=== PATIENT | male | born 1965 | race Two or more races ===

== ENCOUNTER 2017-11-02 18:17 | Emergency (ER) | payer BC ==
[2017-11-02 18:25] VITALS: BP 121/75; PULSE 101; TEMP 98.1; BMI 22.6
--- NOTE | 2017-11-02 19:40 | PDOC ---
History of Present Illness - General Chief Complaint: Back Pain Stated Complaint: BACK PAIN Time Seen by Provider: 11/02/17 19:29 - History of Present Illness Initial Comments: 11/02/17 19:34 CHIEF COMPLAINT: Lower back pain HISTORY OF PRESENT ILLNESS:52-year-old male presents emergency Department with acute on chronic lower back pain. 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 Patient states that while moving a couch up stairs, he felt a twinge in his lower back. Pain is 8/10 describes as shooting/stabbing is nonradiating. Patient denies numbness or tingling to rectum or genitals. Denies urinary or fecal incontinence. REVIEW OF SYSTEMS: GENERAL: Afebrile, denies any weakness RESPIRATORY: No cough, wheezing, or hemoptysis. CARDIAC: No chest pain or shortness of breath MUSCULOSKELETAL: Pain to generalized lower back. No point tenderness. SKIN : No erythema, no bruising, no deformity. GI/: Denies any abdominal pain, no urinary difficulty, incontinence or urinary retention. RECTAL: Denies any difficulty this A.m. NEUROLOGICAL: Denies any numbness or tingling. No neurosensory deficits. PHYSICAL EXAM: GENERAL: The patient is awake, alert, and fully oriented, in no acute distress. RESPIRATORY: Lungs clear bilaterally, no rhonchi wheezes or crackles CARDIAC: S1-S2 audible, no murmur rub or gallop MUSCULOSKELETAL: Pain to generalized lower back, nonradiating, no tingling or sensory deficit. Less than 2 second cap refill, +42 popliteal and pedal pulses. GI/: Abdomen soft, nontender, nondistended. No rebound tenderness. No masses palpable. MUSCULOSKELETAL: No spinal point tenderness. Normal reflexive and no deficits to sensation or strength. RECTAL: Deferred patient with no neurological findings SKIN: Warm, Dry, normal turgor, no erythema, no edema no bruising. 11/02/17 19:36 Past History - Past Medical History Allergies/Adverse Reactions: Allergies Allergy/AdvReac Type Severity Reaction Status Date / Time No Known Allergies Allergy Verified 11/02/17 18:21 Home Medications: Ambulatory Orders NK [No Known Home Medication] 11/02/17 COPD: No Other medical history: DENIES. - Suicide/Smoking/Psychosocial Hx Smoking History: Current every day smoker Have you smoked in the past 12 months: Yes Number of Cigarettes Smoked Daily: 10 Information on smoking cessation initiated: No *Physical Exam - Vital Signs Last Vital Signs Temp Pulse Resp BP Pulse Ox 98.1 F 101 H 19 121/75 99 11/02/17 18:22 11/02/17 18:22 11/02/17 18:22 11/02/17 18:22 11/02/17 18:22 Medical Decision Making - Medical Decision Making 11/02/17 19:39 52-year-old male with acute on chronic lower back pain. Sensation to medial and lateral thighs. Able to perform straight leg raises without difficulty. No palpable muscle spasms in lower back. Motrin 800 mg orally now. Discharge patient home with instructions to take Aleve as needed for pain. *DC/Admit/Observation/Transfer Diagnosis at time of Disposition: Back pain Qualifiers: Back pain location: low back pain Chronicity: acute Back pain laterality: bilateral Sciatica presence: without sciatica Qualified Code(s): M54.5 - Low back pain - Discharge Dispostion Disposition: HOME Condition at time of disposition: Stable Admit: No - Referrals - Patient Instructions Printed Discharge Instructions: DI for Low Back Pain Additional Instructions: Warm moist heat may alleviate some of your pain. Take Aleve as directed by manufacturers instructions for back pain. Return to emergency department for loss of control of your bladder or bowels, numbness or tingling to rectum, genitals, legs or any other concerns. Thank you very much for choosing us to provide your emergent healthcare needs. - Post Discharge Activity
[2017-11-02] MEDS ORDERED: IBUPROFEN 400 MG TABLET (FP) PO ONE ×2 (19:42→19:46)
== END 2017-11-02 19:55 | disposition home or self-care (01) ==
LOC: JERFT 18:17
DX: M54.5 Low back pain (principal); X50.0XXA Overexertion from strenuous movement or load, initial encounter; Y93.F2 Activity, caregiving, lifting; Y92.118 Other place in children's home and orphanage as the place of occurrence of the external cause; Y99.0 Civilian activity done for income or pay; F17.210 Nicotine dependence, cigarettes, uncomplicated
CPT/HCPCS: 99281-25

== ENCOUNTER 2019-04-05 18:04 | Emergency (ER) | payer OTHER ==
--- NOTE | 2019-04-05 18:21 | PDOC ---
Rapid Medical Evaluation Time Seen by Provider: 04/05/19 18:19 Medical Evaluation: Allergies Allergy/AdvReac Type Severity Reaction Status Date / Time No Known Allergies Allergy Verified 05/14/18 21:17 04/05/19 18:19 I have performed a brief in-person evaluation of this patient. The patient presents with a chief complaint of: left shoulder pain Pertinent physical exam findings: No tenderness. Left shoulder pain worsens with PROM. I have ordered the following: cardiac w/u The patient will proceed to the ED for further evaluation. Discharge Disposition - Diagnosis Left shoulder pain - Referrals - Patient Instructions - Post Discharge Activity
[2019-04-05 18:23] VITALS: TEMP 97.4; BMI 22.6
--- NOTE | 2019-04-05 18:58 | PDOC ---
History of Present Illness - General Chief Complaint: Chest Pain Stated Complaint: CHEST PAIN AND SHOULDER Time Seen by Provider: 04/05/19 18:19 - History of Present Illness Initial Comments: Mr. Han is a 54M presenting today with left sided scapular pain that radiates down his left arm and left side of his neck. Reports that the pain started on . Reports that the pain has been worsening. No fever, no cough, no nausea/vomiting. Reports feeling short of breath at rest but does not worsen on exertion. No trauma, no falls. No rash. Reports similar but less severe pains around 1 year ago. Unsure about the type of work up done. He has been taking 15-20 tabs of Tylenol every day with no relief. No HTN, HLD, DM. Smoked 1 pack per day for 39 years. No family history of cardiac disease. Denies any other PMH or medications. Past History - Past Medical History Allergies/Adverse Reactions: Allergies Allergy/AdvReac Type Severity Reaction Status Date / Time No Known Allergies Allergy Verified 04/05/19 18:20 Home Medications: Ambulatory Orders Azithromycin [Zithromax 250mg Tablets -] 250 mg PO UTDICT #6 tab 05/14/18 Benzonatate [Tessalon Pearls -] 100 mg PO TID PRN #21 capsule 05/14/18 Ipratropium [place] 2 sprays NS BID PRN 5 Days #1 spray 05/14/18 Methylprednisolone [Medrol Dose Jarrod] 4 mg PO ASDIR #21 tablet 05/14/18 COPD: No - Immunization History Immunization Up to Date: Yes - Suicide/Smoking/Psychosocial Hx Smoking History: Current every day smoker Have you smoked in the past 12 months: Yes Number of Cigarettes Smoked Daily: 10 Information on smoking cessation initiated: No Hx Alcohol Use: No Drug/Substance Use Hx: No Review of Systems - Review of Systems Comments:: ROS GENERAL/CONSTITUTIONAL: No fever or chills. No weakness._ HEAD, EYES, EARS, NOSE AND THROAT: No change in vision. No ear pain or discharge. No sore throat._ CARDIOVASCULAR: Reports chest pain and shortness of breath. RESPIRATORY: Denies cough, hemoptysis_ GASTROINTESTINAL: No nausea, vomiting, diarrhea or constipation._ GENITOURINARY: No dysuria, frequency, or change in urination._ MUSCULOSKELETAL: Reports pain down the left arm and left side of the neck and left scapula. SKIN: No rash_ NEUROLOGIC: No headache, vertigo, loss of consciousness, or change in strength/ sensation._ ENDOCRINE: No increased thirst. No abnormal weight change_ HEMATOLOGIC/LYMPHATIC: No anemia, easy bleeding, or history of blood clots._ ALLERGIC/IMMUNOLOGIC: No hives or skin allergy._ *Physical Exam - Vital Signs Last Vital Signs Temp Pulse Resp BP Pulse Ox 97.4 F L 82 18 137/90 99 04/05/19 18:20 04/05/19 18:20 04/05/19 18:20 04/05/19 18:20 04/05/19 18:20 - Physical Exam Comments: GENERAL: Awake, alert, and oriented to person/place/time, in no acute distress_ HEAD: No signs of trauma, normocephalic, atraumatic _ EYES: PERRLA, EOMI, sclera anicteric, conjunctiva clear_ ENT: Hearing grossly normal, nares patent, oropharynx clear without exudates. No uvular deviation. Moist mucosa_ NECK: Normal ROM, supple, no lymphadenopathy, JVD, or masses. Muscle tightness over the left lateral neck. CHEST: TTP over left and right sided chest wall, left greater than right. LUNGS: No distress, speaks in full sentences, clear to auscultation bilaterally _ HEART: Regular rate and rhythm, normal S1 and S2, no murmurs appreciated, peripheral pulses normal and equal bilaterally._ ABDOMEN: Soft, nontender, normoactive bowel sounds. No guarding, no rebound. No masses_ EXTREMITIES: Tenderness over the left scapula and down the LUE. NEUROLOGICAL: Cranial nerves II through XII grossly intact. Normal speech, normal gait, no focal sensorimotor deficits _ SKIN: Warm, Dry, normal turgor, no rashes or lesions noted_ ED Treatment Course - LABORATORY CBC & Chemistry Diagram: 04/05/19 19:15 04/05/19 19:15 Medical Decision Making - Medical Decision Making 04/05/19 1900 54M, 39 pack year smoker, denies any other PMH, meds, or risk factors, presenting with left sided scapular pain that radiates down the left arm and up the left neck. DDx includes ACS vs chest wall tenderness vs costochondritis. We'll obtain CBC, CMP, CXR, EKG, troponins, PT/PTT/INR, Mg. 04/05/19 19:52 HEART score 2. Plan for repeat troponins. EKG shows NSR 81 bpm, no axis deviation, no ST elevation or depression, QTc 443 ms. 04/05/19 22:14 Electrolytes wnl. Troponin wnl. Second troponin ordered. CTA of the chest and abdomen ordered to r/o dissection. 04/05/19 22:30 Pt signed out to Dr. Encarnacion. *DC/Admit/Observation/Transfer Diagnosis at time of Disposition: Left shoulder pain Qualifiers: Chronicity: acute Qualified Code(s): M25.512 - Pain in left shoulder - Referrals Referrals: Michelle Cox MD [Primary Care Provider] - - Patient Instructions - Post Discharge Activity
[2019-04-05 20:05] LABS: BASO % 2.2 % (0-2.0); EOS % 1.2 % (0-4.5); HEMATOCRIT 41.3 % (35.4-49); HEMOGLOBIN 14.3 GM/dL (11.7-16.9); LYMPH % 28.3 % (8-40); MCH 30.4 pg (25.7-33.7); MCHC 34.6 g/dl (32.0-35.9); MEAN CELL VOLUME 87.9 fl (80-96); MONO % 7.7 % (3.8-10.2); NEUT % 60.6 % (42.8-82.8); PLATELET COUNT 135 K/MM3 (134-434); RDW 12.8 % (11.9-15.9); WHITE BLOOD COUNT 5.8 K/mm3 (4.0-10.0)
[2019-04-05 20:25] LABS: INR 0.93 (0.83-1.09)
[2019-04-05 20:38] LABS: ALBUMIN 4.7 g/dl (3.4-5.0); BILIRUBIN,TOTAL 0.5 mg/dL (0.2-1); BLOOD UREA NITROGEN 11.9 mg/dL (7-18); CALCIUM 9.1 mg/dL (8.5-10.1); MAGNESIUM 2.6 mg/dL (1.8-2.4); POTASSIUM 4.4 mmol/L (3.5-5.1); TOT PROT 7.5 g/dl (6.4-8.2)
--- NOTE | 2019-04-05 22:30 | PDOC ---
*Physical Exam - Vital Signs Last Vital Signs Temp Pulse Resp BP Pulse Ox 97.4 F L 68 16 148/93 100 04/05/19 18:20 04/05/19 20:03 04/05/19 20:03 04/05/19 20:03 04/05/19 20:03 - Physical Exam Comments: 04/06/19 00:21 Gen: Alert, NAD, comfortable-appearing. HEENT: PERRL, EOMI, MMM, NCAT. No conjunctival pallor. Sclera are non-icteric. Oropharynx is clear. CV: Regular rate and rhythm. No murmurs, rubs, or gallops. PULM: No resp distress. CTAB, no wheezes, rales, or rhonchi. ABD: soft, NT/ND, no rebound tenderness or guarding, no CVA tenderness. BACK: No TTP of c/t/l-spine. No step-offs or deformities. MSK: + TTP of L deltoid and trapezius, full ROM of shoulder. No bony deformities. 2+ pulses in all extremities. NEURO: AAOx3. PERRL. No gross CN deficits. Strength and sensation grossly intact throughout. EXTREMITIES: No cyanosis. No clubbing. No edema. No calf tenderness. PSYCH: Normal mood and thought pattern. SKIN: Warm and dry. Normal capillary refill. No rashes. No jaundice. ED Treatment Course - LABORATORY CBC & Chemistry Diagram: 04/05/19 19:15 04/05/19 19:15 - ADDITIONAL ORDERS Additional order review: Laboratory Results 04/05/19 04/05/19 04/05/19 19:15 19:15 19:15 PT with INR 11.00 INR 0.93 Sodium 139 Potassium 4.4 Chloride 105 Carbon Dioxide 29 Anion Gap 5 L BUN 11.9 Creatinine 1.0 Est GFR (CKD-EPI)AfAm 99.15 Est GFR (CKD-EPI)NonAf 85.55 Random Glucose 93 Calcium 9.1 Magnesium 2.6 H Total Bilirubin 0.5 AST 20 ALT 39 Alkaline Phosphatase 64 Creatine Kinase 191 Creatine Kinase Index 0.5 CK-MB (CK-2) < 1.0 Troponin I < 0.02 Total Protein 7.5 Albumin 4.7 04/05/19 19:15 RBC 4.70 MCV 87.9 MCHC 34.6 RDW 12.8 MPV 10.0 Neutrophils % 60.6 Lymphocytes % 28.3 Monocytes % 7.7 Eosinophils % 1.2 Basophils % 2.2 H Medical Decision Making - Medical Decision Making 04/05/19 22:29 Received sign out from Dr. Cordero. 54M, 39 pack year smoker, denies any other PMH, meds, or risk factors, presenting with left sided scapular pain that radiates down the left arm and up the left neck. DDx includes ACS vs chest wall tenderness vs costochondritis. HEART 2 - WNL: CBC, CMP, CXR, EKG, troponins, PT/PTT/INR, Mg. - Neg CXR - pending 2nd trop and CTA to r/o dissection. If negative, most likely MSK - d/ c home w/f/u ortho Seen and assessed pt at bedside. Pain is reproducible in shoulder, most likely musculoskeletal. CTA negative for dissection. Give Toradol for pain. Pending 2nd trop 04/06/19 00:41 2nd trop <0.02 Pain still minimally present but improved. Will d/c home with ortho f/u. Return precautions given. Pt understands all dc instructions and all questions were answered. *DC/Admit/Observation/Transfer Diagnosis at time of Disposition: Left shoulder pain Qualifiers: Chronicity: acute Qualified Code(s): M25.512 - Pain in left shoulder - Discharge Dispostion Disposition: HOME Condition at time of disposition: Improved Decision to Admit order: No - Referrals Referrals: Michelle Cox MD [Primary Care Provider] - Erasmo Montenegro MD [Staff Physician] - - Patient Instructions Printed Discharge Instructions: DI for Shoulder Pain Additional Instructions: You have been seen in the Emergency Department for your left shoulder pain. Your EKG, chest X-ray, CT scan, and labs, including Troponin (a heart enzyme), show no signs concerning for an emergent condition such as a heart attack or dissection. There are many possible causes of your pain, but based on exam and results, it is most likely musculoskeletal such as a muscle strain. If you experience pain, you can take Tylenol or Ibuprofen as directed on the medication bottle, but do not exceed 3g of Ibuprofen or 4g of Tylenol a day. We have given you a referral to an Orthopedic Surgeon, Dr. Montenegro. Call his office in the morning to set up an appointment for this week. Also follow-up with your primary care doctor within 1 week. Return to the ED immediately if you experience worsening pain not controlled with over the counter medications, chest pain, difficulty breathing, dizziness, or any other new or worsening symptom. - Post Discharge Activity
[2019-04-05] MEDS ORDERED: KETOROLAC TROMETHAMINE 30 MG/1 ML VIAL IVPUSH ONE (23:32)
[2019-04-05] MEDS ORDERED: KETOROLAC TROMETHAMINE 30 MG/1 ML VIAL ONE ×2 (23:51→23:53)
[2019-04-06 01:23] VITALS: BP 129/77; PULSE 100
--- NOTE | 2019-04-06 01:28 | PDOC ---
Documentation entered by Margie Mauricio SCRIBE, acting as scribe for Thi Sherman DO. Thi Sherman DO: This documentation has been prepared by the Luly epps Adrianna, SCRIBE, under my direction and personally reviewed by me in its entirety. I confirm that the documentation accurately reflects all work, treatment, procedures, and medical decision making performed by me. Attending Attestation - Resident Resident Name: GilMoise - ED Attending Attestation I have performed the following: I have examined & evaluated the patient, The case was reviewed & discussed with the resident, I agree w/resident's findings & plan - HPI HPI: The patient is a 54 year old male (current everyday smoker), with no significant PMH, who presents to the ED for evaluation of chest pain for 4 days. He notes the pain is progressively worsening, constant, left sided, most prominent over the scapula, and radiates to his neck and down his LUE. Patient reports associated SOB. Denies numbness or tingling of the LUE. Denies nausea, vomit, rash. Allergies: NKA, NKDA Surgical History: Social History: Current smoker (1ppd) PCP: Dr. Cox - Physicial Exam PE: GENERAL: Awake, in no acute distress HEAD: No signs of trauma EYES: ENT:clear without exudates. Moist mucosa NECK: Normal ROM, LUNGS:. Normal work of breathing. HEART: Regular rate and rhythm, ABDOMEN: Soft, nondistended CHEST WALL: BACK: No midline tenderness. EXTREMITIES:. No erythema, or tenderness NEUROLOGICAL: Alert, SKIN: Warm, Dry - Medical Decision Making 04/06/19 01:07 54-year-old male with left scapular pain, shoulder pain intermittently EKG shows a normal sinus rythm at 81 bpm with no acute ST elevations Rhythmows a sinus rhythm at 80-85 bpm CTA of the chest show no acute abnormalities Troponins negative 2 Patient improved after the Toradol injection in the emergency department Plan for discharge with outpatient primary care follow-up ED Treatment Course - LABORATORY CBC & Chemistry Diagram: 04/05/19 19:15 04/05/19 19:15 - ADDITIONAL ORDERS Additional order review: Laboratory Results 04/05/19 04/05/19 04/05/19 19:15 19:15 19:15 PT with INR 11.00 INR 0.93 Sodium 139 Potassium 4.4 Chloride 105 Carbon Dioxide 29 Anion Gap 5 L BUN 11.9 Creatinine 1.0 Est GFR (CKD-EPI)AfAm 99.15 Est GFR (CKD-EPI)NonAf 85.55 Random Glucose 93 Calcium 9.1 Magnesium 2.6 H Total Bilirubin 0.5 AST 20 ALT 39 Alkaline Phosphatase 64 Creatine Kinase 191 Creatine Kinase Index 0.5 CK-MB (CK-2) < 1.0 Troponin I < 0.02 Total Protein 7.5 Albumin 4.7 04/05/19 19:15 RBC 4.70 MCV 87.9 MCHC 34.6 RDW 12.8 MPV 10.0 Neutrophils % 60.6 Lymphocytes % 28.3 Monocytes % 7.7 Eosinophils % 1.2 Basophils % 2.2 H - RADIOLOGY Radiograph Interpretation: EXAM#: TYPE/EXAM: RESULT: [id number] CT/CHEST CTA CT/ABDOMEN CTA W/WO CONTRAST Chest CT angiography (without and with contrast) Abdomen CT angiography (without and with contrast) Clinical information: evaluate for dissection; chest pain Impression: No CT evidence of aortic dissection or other acute pathology as noted above. Reported By: Dennis Avery MD 04/05/19 22:38 EXAM#: TYPE/EXAM: RESULT: [id number] CT/CHEST CTA [id number] CT/ABDOMEN CTA W/WO CONTRAST Chest CT angiography (without and with contrast) Abdomen CT angiography (without and with contrast) Clinical information: evaluate for dissection; chest pain Impression: No CT evidence of aortic dissection or other acute pathology as noted above. Reported By: Dennis Avery MD 04/05/19 22:38 - Medications Given in the ED: ED Medications Discontinued Medications Generic Name Dose Route Start Last Admin Trade Name Freq PRN Reason Stop Dose Admin Ketorolac Tromethamine 30 mg 04/05/19 23:32 04/05/19 23:58 Toradol Injection - IVPUSH 04/05/19 23:33 30 mg ONCE ONE Administration
--- NOTE | 2019-04-06 13:41 | EKG ---
Test Reason : Blood Pressure : / mmHG Vent. Rate : 081 BPM Atrial Rate : 081 BPM P-R Int : 164 ms QRS Dur : 072 ms QT Int : 382 ms P-R-T Axes : 067 034 046 degrees QTc Int : 443 ms NORMAL SINUS RHYTHM POSSIBLE LEFT ATRIAL ENLARGEMENT BORDERLINE ECG NO PREVIOUS ECGS AVAILABLE Confirmed by Moise Vincent MD ([id number]) on 04/06/2019 1:41:01 PM Referred By: Confirmed By:Moise Vincent MD
== END 2019-04-06 01:05 | disposition home or self-care (01) ==
LOC: JER 18:04
PROC: 3E0333Z Introduction of Anti-inflammatory into Peripheral Vein, Percutaneous Approach (ICD-10-PCS; principal; 2019-04-05)
DX: M25.512 Pain in left shoulder (principal)
CPT/HCPCS: 36415; 71046-TC-FY; 71275-TC; 74175-TC; 80053; 82550; 82553; 83735; 84484; 85025; 85610; 93005; 93010; 96374; 99284-25